=== PATIENT | female | born 1995 | race Caucasian/White ===

== ENCOUNTER 2022-04-16 10:45 | Outpatient (CLI) | payer SELFPAY | END 2022-04-16 10:46 | disposition home or self-care (01) | LOC: NFLDREF 04-19 11:57 | PROVIDERS: Visit Provider Obstetrics & Gynecology | DX: R10.2 Pelvic and perineal pain (principal) | CPT/HCPCS: 87086 ==

== ENCOUNTER 2022-05-17 10:12 | Outpatient (CLI) | payer OTHER, SELFPAY ==
--- NOTE | 2022-05-17 10:15 | CRLHL7_ITS ---
For Patients: As a result of the Century Cures Act, medical imaging exams and procedure reports are released immediately into your electronic medical record. You may view this report before your referring provider. If you have questions, please contact your health care provider. CLINICAL HISTORY: 26 year-old female. Pelvic pain. TECHNIQUE: Real-time, elmore-scale images were acquired of the pelvis using a transabdominal approach. Color Doppler analysis was performed of the ovaries. FINDINGS: Initial transabdominal imaging shows normal size, contour and echotexture of the uterus. Normal thickness of the endometrial stripe measuring 6 mm. No suspicious adnexal masses. For further assessment, a transvaginal scan was undertaken. Transvaginal imaging was performed to better visualize ovaries. The ovaries demonstrate normal follicular development. The left ovary measures 3.8 x 2.1 x 2.7 cm in size and the right ovary measures 3.0 x 2.1 x 2.8 cm. The ovaries demonstrate normal arterial and venous blood flow on color Doppler analysis. There are no suspicious fluid collections within the cul-de-sac. Color and spectral Doppler analysis of the ovaries was preformed to rule out torsion. Complete examination of arterial inflow and venous outflow of the ovaries shows normal flow velocity and spectral Doppler waveforms. IMPRESSION: No abnormalities of the uterus or ovaries identified. Dictated by Red Ramos MD @ 05/17/2022 11:02:14 AM (Electronically Signed)
== END 2022-05-17 10:13 | disposition home or self-care (01) ==
LOC: US 10:13
PROVIDERS: Visit Provider Obstetrics & Gynecology
DX: R10.2 Pelvic and perineal pain (principal)
CPT/HCPCS: 76856; 93976

== ENCOUNTER 2023-04-22 08:00 | Outpatient (RCR) | payer OTHER, SELFPAY | END 2023-08-20 23:59 | disposition home or self-care (01) | PROVIDERS: Visit Provider Obstetrics & Gynecology | DX: N39.41 Urge incontinence (principal); R10.2 Pelvic and perineal pain; K59.00 Constipation, unspecified; M62.81 Muscle weakness (generalized); Z51.89 Encounter for other specified aftercare | CPT/HCPCS: 97110; 97140; 97162 ==

== ENCOUNTER 2023-12-23 09:09 | Outpatient (CLI) | payer OTHER, SELFPAY ==
--- NOTE | 2023-12-23 09:15 | CRLHL7_ITS ---
For Patients: As a result of the Cures Act, medical imaging exams and procedure reports are released immediately into your electronic medical record. You may view this report before your referring provider. If you have questions, please contact your health care provider. RIGHT BREAST ULTRASOUND 12/23/2023 CLINICAL HISTORY: RIGHT breast lump. COMPARISON: None. TECHNIQUE: Real-time ultrasound imaging of RIGHT breast with imaging documentation. FINDINGS: Targeted sonogram RIGHT breast 5 o`clock 3 cm from the nipple. 1.7 x 1.2 x 1.8 cm simple anechoic cyst with increased through transmission. Targeted sonogram right breast 1 o`clock 4 cm from the nipple. 1.8 x 0.8 x 1.2 cm solid nodule with increased through transmission. No abnormal vascularity. IMPRESSION: 1. 1.8 cm simple cyst right breast 5 o`clock 3 cm from the nipple. 2. 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 RECOMMENDATIONS: Clinical follow-up. Patient requests surgical consultation regarding consideration of excision of the fibroadenoma. Results and recommendations were discussed with the patient at the time of the exam. A member of the health care team will contact the patient to schedule the required additional imaging appointment (s). BI-RADS Category 2: Benign Dictated by Arjun Gonzalez MD @ 12/23/2023 11:23:10 AM THADDEUS/joann DW/Dictated by: Arjun Gonzalez MD @ 12/23/2023 11:23:00 AM (Electronically Signed)
== END 2023-12-23 09:10 | disposition home or self-care (01) ==
LOC: US 09:12
PROVIDERS: Visit Provider Physician Assistant
DX: N63.10 Unspecified lump in the right breast, unspecified quadrant (principal); N60.01 Solitary cyst of right breast; D24.1 Benign neoplasm of right breast
CPT/HCPCS: 76642

== ENCOUNTER 2024-01-12 11:47 | Outpatient (CLI) | payer OTHER, SELFPAY | END 2024-01-12 11:48 | disposition home or self-care (01) | PROVIDERS: PCP Registered Nurse; Visit Provider Registered Nurse | DX: R51.9 Headache, unspecified (principal); Z13.228 Encounter for screening for other metabolic disorders; Z13.29 Encounter for screening for other suspected endocrine disorder | CPT/HCPCS: 80048; 84443 ==

== ENCOUNTER 2024-01-23 08:12 | Outpatient (CLI) | payer OTHER, SELFPAY ==
--- NOTE | 2024-01-23 08:15 | CRLHL7_ITS ---
For Patients: As a result of the Century Cures Act, medical imaging exams and procedure reports are released immediately into your electronic medical record. You may view this report before your referring provider. If you have questions, please contact your health care provider. Indication: Headaches. Technique: Noncontrast sagittal T1, axial FLAIR, T2, diffusion weighted sequences are provided. No comparisons. Findings: The ventricles, sulci and gyri are normal size, shape and contour for age. The midline structures are centrally located with no evidence of shift. There are no suspicious intra or extra-axial fluid collections. No region of restricted diffusion. Expected flow voids in the cavernous carotids and basilar artery. Impression: 1. No radiographic evidence of acute intracranial abnormalities. Dictated by Josh Thacker MD @ 01/23/2024 3:28:46 PM (Electronically Signed)
== END 2024-01-23 08:13 | disposition home or self-care (01) ==
PROVIDERS: PCP Registered Nurse; Visit Provider Registered Nurse
DX: R51.9 Headache, unspecified (principal)
CPT/HCPCS: 70551

== ENCOUNTER 2024-08-11 09:11 | Outpatient (CLI) | payer OTHER, SELFPAY | END 2024-08-11 09:12 | disposition home or self-care (01) | LOC: US 09:12 | PROVIDERS: PCP Registered Nurse; Visit Provider Surgery | DX: D24.1 Benign neoplasm of right breast (principal); N60.01 Solitary cyst of right breast | CPT/HCPCS: 76642 ==

== ENCOUNTER 2024-10-26 07:51 | Outpatient (CLI) | payer OTHER, SELFPAY ==
--- NOTE | 2024-10-26 08:15 | CRLHL7_ITS ---
For Patients: As a result of the Century Cures Act, medical imaging exams and procedure reports are released immediately into your electronic medical record. You may view this report before your referring provider. If you have questions, please contact your health care provider. ULTRASOUND-GUIDED ASPIRATION 2 CYSTS RIGHT BREAST CLINICAL HISTORY: Symptomatic cysts COMPARISON STUDIES: 08/11/2024 TECHNIQUE: Real-time ultrasound with image documentation was used for targeting the breast lesions. 10 cc syringe and 18 gauge needle used to aspirate each cyst. CONSENT and TIME OUT: The procedure, risks, and alternatives were explained to the patient and a consent was signed. Rudolph Protocol was followed including pre-procedure verification that relevant information/documentation was available, reviewed and properly matched to the patient; consent accurate and complete; and equipment and supplies available. Time Out was conducted just prior to starting procedure to verify the four required elements: patient identity, correct side/site marked (if applicable), procedure, relevant images/results properly labeled and displayed (if applicable). PROCEDURE: All biopsies were performed in a similar manner. The patient was positioned supine on the ultrasound table. The breast was prepped with ChloraPrep. 5 cc of 1 percent lidocaine used for local anesthesia. Cysts fluid obtained and discarded. No complications. SITE A: LATERALITY: Right breast 5 o`clock 3 cm from the nipple LESION: Circumscribed anechoic cyst measuring 1.6 x 1.4 x 1.8 cm SUSPICION: Low 2.5 cc cystic fluid removed and discarded SITE B: LATERALITY: Right breast 5 o`clock 3 cm from the nipple LESION: Circumscribed anechoic cyst measures 10 x 7 x 14 millimeters SUSPICION: Low 1 cc cystic fluid removed and discarded. DISTANCE BETWEEN: Sites A and B: 2.5 millimeters. IMPRESSION: Ultrasound-guided cyst aspiration x2 right breast. Dictated by Arjun Gonzalez MD @ 10/26/2024 9:49:48 AM (Electronically Signed)
== END 2024-10-26 07:52 | disposition home or self-care (01) ==
LOC: US 07:52
PROVIDERS: PCP Registered Nurse; Visit Provider Surgery
DX: N60.01 Solitary cyst of right breast (principal)
CPT/HCPCS: 19000; 76942

== ENCOUNTER 2025-01-04 12:08 | Outpatient (CLI) | payer OTHER, SELFPAY ==
[2025-01-07 05:24] LABS: HPV Source Cervical
== END 2025-01-04 12:09 | disposition home or self-care (01) ==
PROVIDERS: PCP Registered Nurse; Visit Provider Midwife
DX: Z12.4 Encounter for screening for malignant neoplasm of cervix (principal); Z11.51 Encounter for screening for human papillomavirus (HPV)
CPT/HCPCS: 87624; 87625; 88141; 88142

== ENCOUNTER 2025-01-12 13:15 | Outpatient (CLI) | payer OTHER, SELFPAY ==
[2025-01-15 23:09] LABS: Hematocrit 40.4 % (33.0-51.0); Hemoglobin* 13.3 gm/dL (12.0-16.0); Immature Granulocytes Abs Auto 0.02 K/uL (0.00-0.30); Immature Granulocytes Pct Auto 0.3 %; Mean Corpuscular HGB Conc 33 gm/dL (32-36); Mean Corpuscular Hemoglobin 30 pg (26-34); Mean Corpuscular Volume 91 fL (80-100); RDW Coefficient of Variation % 12.8 % (11.5-15.5); Red Blood Count 4.44 m/uL (4.00-5.20); White Blood Count* 6.51 K/uL (4.50-11.00)
[2025-01-15 23:12] LABS: Lymphocytes Absolute Auto 3.00 K/uL (0.90-2.90); Slide Review Reflex No
[2025-01-15 23:26] LABS: Cholesterol* 179 mg/dL (90-199); HDL Cholesterol* 71 mg/dL (>=50); Triglycerides* 140 mg/dL (40-149)
[2025-01-16 06:28] LABS: TSH With Reflex to FT4* 3.320 uIU/mL (0.270-4.200)
[2025-01-18 17:00] LABS: Estradiol Premenol Female 53 pg/mL
[2025-01-18 21:09] LABS: Follicle Stimulating Hormone 7.9 IU/L
== END 2025-01-12 13:16 | disposition home or self-care (01) ==
PROVIDERS: Advanced Practice Midwife; PCP Registered Nurse; Visit Provider Midwife
DX: N92.6 Irregular menstruation, unspecified (principal); Z12.4 Encounter for screening for malignant neoplasm of cervix
CPT/HCPCS: 80061; 82670; 83001; 83520; 84443; 85025

== ENCOUNTER 2025-04-04 11:53 | Outpatient (CLI) | payer OTHER, SELFPAY | END 2025-04-04 11:54 | disposition home or self-care (01) | LOC: NFLDREF 04-10 07:40 | PROVIDERS: Visit Provider Midwife | DX: N92.6 Irregular menstruation, unspecified (principal) | CPT/HCPCS: 84144 ==

== ENCOUNTER 2025-05-24 09:09 | Outpatient (CLI) | payer OTHER, SELFPAY ==
--- NOTE | 2025-05-24 09:15 | CRLHL7_ITS ---
For Patients: As a result of the Cures Act, medical imaging exams and procedure reports are released immediately into your electronic medical record. You may view this report before your referring provider. If you have questions, please contact your health care provider. RIGHT BREAST ULTRASOUND CLINICAL HISTORY: RIGHT breast fibroadenoma, history of cyst. COMPARISON: 10/26/2024, 08/11/2024. TECHNIQUE: Real-time ultrasound imaging of RIGHT breast with imaging documentation. FINDINGS: Targeted RIGHT breast ultrasound performed at 1 o`clock, 4 cm from the nipple. There is a solid hypoechoic nodule measuring 2.2 x 0.9 x 1.5 cm, previously measuring 1.9 x 0.8 x 1.3 cm. Targeted RIGHT breast ultrasound performed at 5 o`clock, 4 cm from the nipple. Previously noted cyst is no longer present. IMPRESSION: 1. Fibroadenoma RIGHT breast 1 o`clock, 4 cm from the nipple, measuring 2.2 cm. Previously, this measured 1.9 x 0.8 x 1.3 cm. 2. Resolution of previously noted cyst RIGHT breast 5 o`clock, 4 cm from the nipple. RECOMMENDATIONS: Clinical follow-up. Age-appropriate screening mammography. Results and recommendations were discussed with the patient at the time of the exam. A lay language report of this examination will be provided to the patient. BI-RADS Category 2: Benign Dictated by Arjun Gonzalez MD @ 05/24/2025 11:42:30 AM /sp SP/Dictated by: Arjun Gonzalez MD @ 05/24/2025 11:42:00 AM (Electronically Signed)
== END 2025-05-24 09:10 | disposition home or self-care (01) ==
LOC: US 09:09
PROVIDERS: Visit Provider Surgery
DX: N60.01 Solitary cyst of right breast (principal); D24.1 Benign neoplasm of right breast
CPT/HCPCS: 76642